=== PATIENT | male | born 1970 | race American Indian/Alaskan Native ===

== ENCOUNTER 2016-10-12 21:24 | Emergency (ER) | payer OTHER ==
[2016-10-12] MEDS ORDERED: TYLENOL ONE (22:21)
[2016-10-12] MEDS ORDERED: TYLENOL PO ONE (22:22)
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
[2016-10-13] MEDS ORDERED: NORCO 7.5/325 PO ONE (01:21)
[2016-10-13] MEDS ORDERED: FLEXERIL PO ONE (01:21)
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
[2016-10-13 02:38] VITALS: BP 148/74
== END 2016-10-13 02:37 | disposition home or self-care (01) ==
LOC: ED 21:24
DX: M54.2 Cervicalgia (principal); M54.5 Low back pain; I10 Essential (primary) hypertension; E66.9 Obesity, unspecified; Z79.82 Long term (current) use of aspirin; Z88.6 Allergy status to analgesic agent; Z86.73 Personal history of transient ischemic attack (TIA), and cerebral infarction without residual deficits; V87.7XXA Person injured in collision between other specified motor vehicles (traffic), initial encounter; Y93.89 Activity, other specified; Y99.9 Unspecified external cause status; Y92.410 Unspecified street and highway as the place of occurrence of the external cause
CPT/HCPCS: 72100; 72125